=== PATIENT | male | born 1955 | race Caucasian/White ===

== ENCOUNTER → 2017-04-16 | Day surgery (SDC) | payer OTHER ==
[2017-04-04 08:45] VITALS: BMI 26.0
--- NOTE | 2017-04-04 09:06 | PAT Medication Instructions ---
Service Date Apr 04, 2017. Current Home Medication List Alfuzosin Hcl (Uroxatral), 10 MG PO HS Alprazolam (Xanax), 0.5 MG PO PRN Levothyroxine Sodium (Levothyroxine Sodium), 1 TAB PO QAM Lisinopril (Zestril), 20 MG PO QAM Medication Instructions For Your Scheduled Surgery - Hold the following medications the morning of surgery: Lisinopril (Zestril), 20 MG PO QAM - Take the following medications the morning of surgery with a sip of water: Levothyroxine Sodium (Levothyroxine Sodium), 1 TAB PO QAM - Take the following medications as scheduled the night before surgery: Alfuzosin Hcl (Uroxatral), 10 MG PO HS Alprazolam (Xanax), 0.5 MG PO PRN (if needed) If you have any questions please call us at [phone] or [phone] or [phone]
--- NOTE | 2017-04-04 09:38 | DIAGNOSTIC IMAGING REPORT ---
CHEST 2 VIEWS ROUTINE CLINICAL HISTORY: PAT preoperative evaluation COMPARISON STUDY: 01/25/2015 FINDINGS: The bones soft tissues and hemidiaphragms are normal. The cardiomediastinal silhouette is normal. The lungs are clear. The pulmonary vasculature is normal. IMPRESSION: Negative chest. The above report was generated using voice recognition software. It may contain grammatical, syntax or spelling errors. Electronically signed by: Tan Leos M.D. 04/04/2017 9:36 AM Dictated Date/Time: 04/04/2017 9:35 AM
[~2017-04-16] VITALS: Ht 182.9 cm; Wt 86.3 kg
[2017-04-16] VITALS (7 sets, daily range): BP systolic 121–150; BP diastolic 70–83; PULSE 46–59; TEMP 36.2–36.5; O2SAT 97–99; Ht 182.9 cm; Wt 86.3 kg
[~2017-04-16] MED LIST: ALFU10TA2 PO; ALPR-411 PO; ATROPINE SULFATE 0.1 MG/ML 5ML SYR IV PRN; CIPR-255 PO; CIPROFLOXACIN / D5W 400 MG IV SCH; EpHEDrine SULFATE INJ 50 MG/ML AMP IV PRN; KETAMINE HCL INJ 50 MG/ML 10 ML VIAL ONE; LACTATED RINGER'S 1000ML 1,000 ML IV SCH; LEVO125T5 PO; LISI-725 PO; OXYC7.5T65 PO; OXYCODONE/ACETAMINOPHEN 5-325 TAB ONE; OXYCODONE/ACETAMINOPHEN 5-325 TAB PO PRN; PHEN-775 PO; PHENAZOPYRIDINE HCL 200 MG TAB PO PRN; PROPOFOL IV EMULSION 10 MG/ML 20 ML VIAL IV ONE
--- NOTE | 2017-04-16 09:36 | History & Physical Bridge Note ---
H&P Re-Evaluation Bridge Note: I have examined the patient, reviewed the History & Physical and in the interval since the performance of the History & Physical I have noted the following changes of clinical significance: No changes noted
--- NOTE | 2017-04-16 09:47 | Discharge Instructions ---
Discharge Instructions Date of Service Apr 16, 2017. Admission Reason for Admission: Enlarged Prostate Discharge Discharge Diagnosis / Problem: BPH s/p Urolift Discharge Goals Goal(s): Improve function, Improve disease control, Therapeutic intervention Activity Recommendations Activity Limitations: as noted below Lifting Limitations: no more than 25 pounds, gradually increase as tolerated Exercise/Sports Limitations: rest today, gradually increase as tolerated May Resume Sexual Activity: after follow-up appointment Shower/Bathe: no limitations Driving or Machine Use: resume 1 day after discharge . Instructions / Follow-Up Instructions / Follow-Up In office as scheduled Current Hospital Diet Patient's current hospital diet: Discharge Diet Recommended Diet: Regular Diet (good fluid intake) Procedures Procedures Performed: Cystoscopy, Urolift Pending Studies Studies pending at discharge: no Medical Emergencies . Who to Call and When: Medical Emergencies: If at any time you feel your situation is an emergency, please call 911 immediately. . Non-Emergent Contact Non-Emergency issues call your: Urologist Call Non-Emergent contact if: you have a fever, temperature is above 101, your pain is not controlled, your pain is worsening, your pain is unusual for you, your pain is concerning you, you have any medication questions . . "Provider Documentation" section prepared by Lazarus Dangelo. . VTE Core Measure Inpt VTE Proph given/why not?: SCD's [place] Drug Monitoring Program Search Results: patient reviewed within database, no issues identified
--- NOTE | 2017-04-16 09:49 | [facility] Post Operative Brief Note ---
Immediate Operative Summary Operative Date Apr 16, 2017. Pre-Operative Diagnosis BPH Post-Operative Diagnosis Same Procedure(s) Performed Cystoscopy, Urolift Surgeon Antolin Kay Engine Buildup Mechanic Surgeon(s) NA Estimated Blood Loss NA Findings Open prostatic fossa after completion Specimens NA Drains 20 fr coude amado Anesthesia MAC Complication(s) None Disposition Recovery Room / PACU
--- NOTE | 2017-04-16 12:14 | [facility] Operative Report ---
Operative Report Operative Date Apr 16, 2017. Pre-Operative Diagnosis Benign Prostatic Hyperplasia Post-Operative Diagnosis Benign Prostatic Hyperplasia Procedure(s) Performed Cystoscopy; Urolift Surgeon Dr. Samir Dangelo Social Work Therapist Surgeon(s) none Estimated Blood Loss 5mL Findings Open prostatic fossa after placement of 5 Urolift tacks, 3 on right, 2 on left. Specimens none per surgeon Drains 20 fr coude amado Anesthesia MAC Complication(s) None Disposition Recovery Room / PACU Indications 61 yo male with BPH who has decided upon a Urolift to manage his disease. Please see H&P for further details. Cipro used for preop antibiotics and SCDs used for DVT prophylaxis. Description of Procedure Patient was properly identified and brought into the operative suite after identification of appropriate consent of the chart. Monitored anesthesia care with sedation was initiated and patient was prepped and draped in the standard fashion for this procedure. Full timeout procedure was followed. Urolift scope was inserted into the bladder using the visual obturator and bladder was inspected demonstrating ureteral orifices well removed from the bladder neck and grade 2 trabeculation. No intravesical calculi or papillary masses were appreciated. Urolift tacks were placed first on the left and right side at the level of the bladder neck with excellent opening of the proximal prostatic fossa. This was repeated at the level of the verumontanum with improvement of an anterior channel for unobstructed voiding. Some residual obstruction in the midgland on the right hand side was noted due to excess growth on the right compared to the left and was opened with 1 more Urolift tacks for a total of 5 used with excellent results. Excellent placement of the tacks was appreciated. Due to some bleeding from the right side of the prostate a temporary amado was placed after removal of the cystoscope, 20 fr coude for tamponade with trial of void planned in a couple of hours. Anesthesia was reversed and patient was transferred to the recovery room in stable condition. Follow-up care: Patient will be discharged home after voiding. Prescription for ciprofloxacin, Pyridium and Percocet are provided in the chart. Outpatient appointment is confirmed. Patient is to contact us with any difficulties after his surgery. I attest to the content of the Intraoperative Record and any orders documented therein. Any exceptions are noted below.
--- NOTE | 2017-04-16 12:26 | Anesthesiology Progress Note ---
Anesthesia Post Op Note Date & Time Apr 16, 2017 at 12:26 Vital Signs Pain Intensity: 0 Vital Signs Past 12 Hours Date Time Temp Pulse Resp B/P (MAP) Pulse Ox O2 Delivery O2 Flow Rate FiO2 04/16/17 09:16 36.2 59 16 138/77 (97) 99 Room Air Notes Mental Status: alert / awake / arousable, participated in evaluation Pt Amnestic to Procedure: Yes Nausea / Vomiting: adequately controlled Pain: adequately controlled Airway Patency, RR, SpO2: stable & adequate BP & HR: stable & adequate Hydration State: stable & adequate Anesthetic Complications: no major complications apparent
== END | disposition home or self-care (01) ==
LOC: C.ACU 08:51
PROVIDERS: ATTEND Urology
DX: N40.0 Benign prostatic hyperplasia without lower urinary tract symptoms (principal); I10 Essential (primary) hypertension; E03.9 Hypothyroidism, unspecified; R53.83 Other fatigue; Z84.89 Family history of other specified conditions; Z82.49 Family history of ischemic heart disease and other diseases of the circulatory system; Z83.79 Family history of other diseases of the digestive system; Z80.6 Family history of leukemia